=== PATIENT | female | born 1945 | race Caucasian/White ===

== ENCOUNTER 2020-11-26 07:34 | Inpatient (IN) ==
[2020-11-26] MEDS ORDERED: IOPAMIDOL 100 ML BOTTLE IV ONE (07:35)
[2020-11-26] MEDS ORDERED: 0.9 % SODIUM CHLORIDE 1,000 ML IV ONE (07:46)
[2020-11-26] MEDS ORDERED: ONDANSETRON 4 MG/2 ML VIAL IV ONE (07:46)
--- NOTE | 2020-11-26 07:46 | Emergency Department Note ---
Abdominal Pain HPI General Chief Complaint: Nausea/Vomiting/Diarrhea Stated Complaint: nausea/vomiting, abd cramps Time Seen by Provider: 11/26/20 09:08 Source: patient Mode of arrival: wheelchair Limitations: no limitations History of Present Illness HPI Narrative: 75-year-old female presents with chief complaint of abdominal pain. Patient has a history of metastatic colon cancer she has a colostomy. She had a partial resection of her liver due to metastases. She has been having some right lower quadrant cramping she describes with some nausea and loose stools. Denies any bloody stools. No fevers or chills but she did have some sweats so with the cramping. Denies any recent travel denies any recent ill contacts. She does have some chronic urinary incontinence related to radiation for treating the cancer. She denies any chest pain denies any shortness of breath. She does have some discomfort in her back. Nothing seems to make the pain better or worse. Related Data Home Medications Medication Instructions Recorded Confirmed omeprazole magnesium 20 mg 20 mg PO QDAY 03/05/20 11/26/20 tablet,delayed release ascorbic acid (vitamin C) [Vitamin 500 mg PO QDAY 10/23/20 11/26/20 C] calcium carbonate [Calcium 500] 1,000 mg PO QDAY 10/23/20 11/26/20 cholecalciferol (vitamin D3) 25 mcg PO QDAY 10/23/20 11/26/20 [Vitamin D3] gabapentin 300 mg PO HS 10/23/20 11/26/20 omega-3 fatty acids [Fish Oil] 1,000 mg PO QDAY 10/23/20 11/26/20 Previous Rx's Medication Instructions Recorded losartan 100 mg tablet 100 mg PO QDAY #90 tab 07/10/20 estradiol 1 g VAGINAL .2 x per week #42.5 g 11/15/20 vibegron 75 mg tablet 75 mg PO QDAY #30 tab 11/22/20 Allergies Allergy/AdvReac Type Severity Reaction Status Date / Time adhesive Allergy Mild Hives Verified 11/26/20 07:36 Iodinated Contrast Media Allergy Mild breathing Verified 11/26/20 07:36 [Iodinated Contrast- Oral issues, and IV Dye] hives Sulfa (Sulfonamide Allergy Mild hives Verified 11/26/20 07:36 Antibiotics) Influenza Virus Vaccines AdvReac Mild fever, Verified 11/26/20 07:36 chills, aches oxycodone AdvReac Mild Made Face Verified 11/26/20 07:36 Numb Varenicline [From Chantix] AdvReac Mild Nausea Verified 11/26/20 07:36 Review of Systems ROS ROS Narrative: Narrative: All systems ED: reviewed and negative except as stated. Constitutional: Denies fever, chills and sweats Eyes: Denies vision change Cardiovascular: Denies chest pain Respiratory: Denies shortness of breath and cough Gastrointestinal: Reports as per HPI, abdominal pain, nausea and diarrhea Musculoskeletal: Reports back pain Integumentary: Denies rash Neurological: Denies headache and dizziness Psychiatric: Denies anxiety, suicidal thoughts and homicidal thoughts Endocrine: Denies polydipsia and polyuria Hematological/Lymphatic: Denies easy bleeding and easy bruising PFSH Narrative Patient History Narrative: Narrative: Medical/Surgical/Family History All Active Problems (Updated 11/26/20 @ 15:11 by Jose Riley MD) Partial intestinal obstruction due to peritoneal adhesions (Acute) Acid reflux (Chronic ~01/2018) High blood pressure (Chronic ~2004) High cholesterol (Chronic ~2004) Joint pain (Chronic ~2017) Left leg pain (Chronic ~2017) Urinary frequency (Chronic) History of tobacco abuse (Chronic) Rectal cancer (Chronic) Liver metastasis (Chronic) History of resection of liver (Chronic) History of rectal surgery (Chronic) Urinary urgency (Chronic) Neuropathy (Chronic) Osteoarthritis (Chronic) Left shoulder pain (Chronic) Essential hypertension (Chronic) Pelvic irradiation (Acute) Vaginal atrophy (Acute) Partial obstruction of colon (Acute) Partial small bowel obstruction (Acute) Medical History Acid reflux (~01/2018) Diplopia Dizziness and giddiness Essential hypertension High blood pressure (~2004) High cholesterol (~2004) History of tobacco abuse Impacted cerumen Joint pain (~2017) Left knee pain (~2017) Left leg pain (~2017) Left shoulder pain Liver metastasis Primary rectal cancer Neuropathy Secondary to chemotherapy Osteoarthritis Rectal cancer Urinary frequency Urinary urgency Surgical History History of colonoscopy (~05/24/19) History of hysterectomy (~1985) History of laparoscopic cholecystectomy (01/18/18) History of liver biopsy (~06/15/19) History of rectal surgery Abdominal perineal resection, Liver resection partial, Pelvic/Perineal reconstruction with gracilis flap transposition/rotation from bilateral legs, Alisha for flap, Complex perineum closure, March 2020 History of resection of liver Abdominal perineal resection, Liver resection partial, Pelvic/Perineal reconstruction with gracilis flap transposition/rotation from bilateral legs, Alisha for flap, Complex preineum closure Port-A-Cath in place (~06/24/19) Family History Father Brain tumor High blood pressure Sister Lung cancer Breast cancer Son Tumor behind left kidney & along spinal cord Mother Dementia High blood pressure Social History Smoking Status: Former smoker Alcohol Intake Frequency: holiday/special occasion only Substance Use: does not use Exam Narrative Narrative: Vital Signs reviewed. Constitutional: Awake alert no acute distress well-nourished well-developed Head: Normocephalic, atraumatic Eyes: PERRLA, EOMI, no conjunctivitis Ear: Normal canals and TM's Oropharynx: moist oral mucosa, no edema, no erythema, no exudate Neck: Supple, no lymphadenopathy, no JVD Lungs: Breathing unlabored, lungs clear Cardiac: Regular rate and rhythm, normal distal pulses, GI: Soft mild right lower quadrant tenderness without rebound or guarding, there is left-sided colostomy present with brown stool present Musculoskeletal: No tenderness, no deformities, no edema, full range of motion Back: no CVA or midline tenderness Neuro: Awake alert, cranial nerves II through XII grossly intact, no focal motor or sensory deficits Psychiatric: Normal mood and affect Skin: Warm dry no rash, cap refill less than 2 seconds General Limitations: no limitations Course Reevaluation(s) Reevaluation #1: Still having some pain. Discussed CT abdomen pelvis results showing obstruction at the splenic flexure and also another stricture at the level of the small bowel. Patient is agreeable to being admitted for further evaluation and treatment and surgical consultation. Time: 09:50 Consultations Consultation #1: Case discussed with general surgeon,, Dr. Riley who agrees to admit patient. Time: 09:54 Vital Signs Vital signs: Vital Signs Temperature 96.8 F L 11/26/20 07:34 Pulse Rate 110 H 11/26/20 07:34 Respiratory Rate 16 11/26/20 07:34 Blood Pressure 138/85 11/26/20 07:34 Pulse Oximetry (%) 98 11/26/20 07:34 Temperature 97.9 F 11/26/20 12:00 Pulse Rate 87 11/26/20 12:00 Respiratory Rate 20 11/26/20 12:00 Blood Pressure 120/67 11/26/20 12:00 Pulse Oximetry (%) 99 11/26/20 12:00 MDM MDM Narrative Medical decision making narrative: Narrative: Differential Diagnosis Differential Diagnosis: Metastasis, bowel obstruction, colitis ,UTI ,pancreatitis, enteritis Lab Data Result diagrams: 11/26/20 08:10 11/26/20 08:09 Labs: Lab Results 11/26/20 11/26/20 11/26/20 Range/Units 08:09 08:10 08:10 WBC 12.5 H (4.5-11.0) K/mcL RBC 4.41 (4.00-5.20) M/mcL Hgb 14.6 (12.0-15.0) g/dL Hct 43.4 (36.0-48.0) % MCV 98.4 (80.0-100.0) fL MCH 33.1 (26.0-34.0) pg MCHC 33.6 (31.0-36.0) g/dL RDW 12.9 (11.5-14.5) % Plt Count 256 (140-440) K/mcL MPV 10.5 H (7.4-10.4) fL Seg Neutrophils % 79 H (38-78) % Lymphocytes % 13 L (15-49) % Monocytes % (Manual) 5 (1-12) % Eosinophils % (Manual) 3 (0-7) % Platelet Estimate Normal (Normal) RBC Morphology Normal (Normal) VBG Lactic Acid 1.4 (0.5-2.0) mmol/L Sodium 131 L (133-145) mmol/L Potassium 4.4 (3.3-5.1) mmol/L Chloride 95 L (96-108) mmol/L Carbon Dioxide 20 L (22-30) mmol/L Anion Gap 16.0 (8.0-16.0) BUN 21 (8-23) mg/dL Creatinine 1.1 (0.6-1.1) mg/dL POC Creatinine 1.2 (0.6-1.2) mg/dL GFR Calculation 49 Glucose 123 H (70-105) mg/dL Calcium 9.6 (8.6-10.4) mg/dL Total Bilirubin 0.8 (0.1-1.0) mg/dL AST 21 (<32) U/L ALT 8 (<40) U/L Alkaline Phosphatase 92 (39-117) U/L Total Protein 7.2 (5.9-8.4) gm/dL Albumin 4.1 (3.2-5.2) gm/dL Globulin 3.1 (2.2-3.7) gm/dL Albumin/Globulin Ratio 1.3 (1.0-2.3) Lipase 28 (7-60) U/L Urine Color Urine Appearance (Clear) Urine pH (5.0-9.0) Ur Specific Lynn (1.000-1.035) Urine Protein (Negative) mg/dL Urine Glucose (UA) (Negative) mg/dL Urine Ketones (Negative) mg/dL Urine Occult Blood (Negative) mg/dL Urine Nitrate (Negative) Urine Bilirubin (Negative) mg/dL Urine Urobilinogen mg/dL Ur Leukocyte Esterase (Negative) /ug Urine RBC (0-3) /hpf Urine WBC (0-4) /hpf Ur Squamous Epith Cells (0-4) /hpf Ur Transition Epith Cell (0-2) /hpf Urine Bacteria (0) /hpf Hyaline Casts (0-2) /lph Urine Mucus (None) /hpf Ur Culture Indicated? 11/26/20 Range/Units 09:18 WBC (4.5-11.0) K/mcL RBC (4.00-5.20) M/mcL Hgb (12.0-15.0) g/dL Hct (36.0-48.0) % MCV (80.0-100.0) fL MCH (26.0-34.0) pg MCHC (31.0-36.0) g/dL RDW (11.5-14.5) % Plt Count (140-440) K/mcL MPV (7.4-10.4) fL Seg Neutrophils % (38-78) % Lymphocytes % (15-49) % Monocytes % (Manual) (1-12) % Eosinophils % (Manual) (0-7) % Platelet Estimate (Normal) RBC Morphology (Normal) VBG Lactic Acid (0.5-2.0) mmol/L Sodium (133-145) mmol/L Potassium (3.3-5.1) mmol/L Chloride (96-108) mmol/L Carbon Dioxide (22-30) mmol/L Anion Gap (8.0-16.0) BUN (8-23) mg/dL Creatinine (0.6-1.1) mg/dL POC Creatinine (0.6-1.2) mg/dL GFR Calculation Glucose (70-105) mg/dL Calcium (8.6-10.4) mg/dL Total Bilirubin (0.1-1.0) mg/dL AST (<32) U/L ALT (<40) U/L Alkaline Phosphatase (39-117) U/L Total Protein (5.9-8.4) gm/dL Albumin (3.2-5.2) gm/dL Globulin (2.2-3.7) gm/dL Albumin/Globulin Ratio (1.0-2.3) Lipase (7-60) U/L Urine Color Yellow Urine Appearance Hazy A (Clear) Urine pH 7.0 (5.0-9.0) Ur Specific Lynn 1.036 (1.000-1.035) Urine Protein Negative (Negative) mg/dL Urine Glucose (UA) Negative (Negative) mg/dL Urine Ketones 5 A (Negative) mg/dL Urine Occult Blood Negative (Negative) mg/dL Urine Nitrate Negative (Negative) Urine Bilirubin Negative (Negative) mg/dL Urine Urobilinogen Negative mg/dL Ur Leukocyte Esterase 250 A (Negative) /ug Urine RBC < 1 (0-3) /hpf Urine WBC 7 H (0-4) /hpf Ur Squamous Epith Cells 6 H (0-4) /hpf Ur Transition Epith Cell < 1 (0-2) /hpf Urine Bacteria None (0) /hpf Hyaline Casts 9 H (0-2) /lph Urine Mucus Few A (None) /hpf Ur Culture Indicated? No ED POC Tests ED POC Tests: CHANTELLE - SARS Antigen Negative Radiology Data Radiology results reviewed: Yes I reviewed the patient's radiology results. Radiology results narrative: IMPRESSION: 1. Partial colectomy including the distal descending and rectosigmoid region with colostomy in the mid abdomen. A stricture at the splenic flexure results in partial colonic obstruction. In addition, there appears to be a second stricture versus spasm within small bowel segments in the left midabdomen on coronal image 47 and axial image 96. Standard radiographic small bowel bowel follow-through study may be required to evaluate the presence or absence of a second point of obstruction in the small bowel). There is no free air to suggest perforation and no free fluid in support third spacing. Mild edema in the presacral region is stable and chronic. 2. 14 mm cystic lesion in the uncinate process of the pancreas is been stable since the earliest CT available 1.5 years ago and is likely a a simple cyst. 3. Scattered hepatic cysts-stable. 4. Small subcapsular fluid collection inferolateral spleen-stable Interpreted and Authenticated by: Saroj Zheng 11/26/20 EKG Data EKG #1: EKG attestation: Yes I reviewed and interpreted this EKG. and Yes There are no EKG findings of acute coronary syndrome EKG results narrative: 8:50 AM shows sinus rhythm rate of 96 normal axis LVH with strain, multiple PVCs nonspecific ST changes Discharge Plan Patient/Caregiver Discharge Instructions Pt seen by FIRE EXTINGUISHER INSTALLER/PA only: No Clinical Impression: Partial obstruction of colon, Partial small bowel obstruction Patient Disposition: Xfer As Outpt/Obs ([facility]) Condition: Fair Discharge Date/Time: 11/26/20 11:00
[2020-11-26 08:19] LABS: POC Creatinine 1.2 mg/dL (0.6-1.2)
[2020-11-26 08:50] LABS: Hematocrit 43.4 % (36.0-48.0); Hemoglobin 14.6 g/dL (12.0-15.0); Mean Cell Volume 98.4 fL (80.0-100.0); Mean Corpuscular HGB Conc 33.6 g/dL (31.0-36.0); Mean Platelet Volume 10.5 fL (7.4-10.4); Platelet Count 256 K/mcL (140-440); RBC 4.41 M/mcL (4.00-5.20); Red Cell Distribution Width 12.9 % (11.5-14.5); WBC 12.5 K/mcL (4.5-11.0)
[2020-11-26 09:09] LABS: ALT/SGPT 8 U/L (<40); AST/SGOT 21 U/L (<32); Albumin 4.1 gm/dL (3.2-5.2); Albumin/Globulin Ratio 1.3 (1.0-2.3); Alkaline Phosphatase 92 U/L (39-117); Bilirubin,Total 0.8 mg/dL (0.1-1.0); Blood Urea Nitrogen 21 mg/dL (8-23); Calcium 9.6 mg/dL (8.6-10.4); Carbon Dioxide 20 mmol/L (22-30); Chloride 95 mmol/L (96-108); Globulin 3.1 gm/dL (2.2-3.7); Glomerular Filtration Rate 49; Glucose 123 mg/dL (70-105)
[2020-11-26 09:25] LABS: Eosinophils % (Manual) 3 % (0-7); Lymphocytes % 13 % (15-49); Monocytes % (Manual) 5 % (1-12); Platelet Estimate NORMAL (Normal); RBC Morphology NORMAL (Normal); Segmented Neutrophils % 79 % (38-78)
--- NOTE | 2020-11-26 09:43 | Cat Scan Report ---
CLINICAL INFORMATION: Abdominal pain COMPARISON: Abdomen and pelvic CT 05/30/2019 and 09/24/2020 TECHNIQUE: Enteric contrast was withheld. 80 cc of Isovue-370 were injected intravenously, and 60 seconds later, 0.625 mm helical slices were obtained from the mid heart through the subtrochanteric regions. Following reconstruction, 2.5 mm sagittal, coronal and axial reformatted images were processed and reviewed at bone, lung and soft tissue windows. Five minutes later, 0.625 mm helical slices were obtained from the mid heart through the kidneys and viewed at soft tissue windows.The exam was performed using radiation dose optimization techniques including, but not limited to, automated exposure control, adjustment of the mA and/or kV according to patient size and use of iterative reconstruction technique. FINDINGS: Lung bases show no abnormality-no effusion. The visualized heart is moderately enlarged heavy calcification seen in the mitral valve. Abdominal images show scattered simple cysts within the liver ranging up to 18 mm in the posterior segment right hepatic lobe. These are unchanged. The gallbladder is surgically absent. Hepatic and common bile duct normal caliber: CBD is 6 mm. A 14 mmcystic lesion in the uncinate process of the pancreas is stable for 1.5 years. The remaining pancreas, including the pancreatic duct, is normal. Both kidneys, and adrenal glands are normal. Small subcapsular fluid collection in the inferior lateral spleen is stable. The aorta contains moderate fibrofatty calcific plaque, but is normal diameter. Aortic branches contain plaque, but no definite stenosis. Pelvic images show urinary bladder is decompressed but shows no gross abnormality. Hysterectomy and oophorectomy changes noted. There is no free air, free fluid or adenopathy. Partial colectomy including the distal one half of the descending and rectosigmoid colon. There is a colostomy in the left midabdomen. Stomach, small and large bowel are dilated to the level of a stricture at the splenic flexure. There appears to be a second stricture in the small bowel in the left mid abdomen seen on coronal image 47 axial image 96.. Anatomy is difficult to define given the complexity of prior surgeries a lack of enteric contrast. Bone windows show no osseous abnormality. IMPRESSION: 1. Partial colectomy including the distal descending and rectosigmoid region with colostomy in the mid abdomen. A stricture at the splenic flexure results in partial colonic obstruction. In addition, there appears to be a second stricture versus spasm within small bowel segments in the left midabdomen on coronal image 47 and axial image 96. Standard radiographic small bowel bowel follow-through study may be required to evaluate the presence or absence of a second point of obstruction in the small bowel). There is no free air to suggest perforation and no free fluid in support third spacing. Mild edema in the presacral region is stable and chronic. 2. 14 mm cystic lesion in the uncinate process of the pancreas is been stable since the earliest CT available 1.5 years ago and is likely a a simple cyst. 3. Scattered hepatic cysts-stable. 4. Small subcapsular fluid collection inferolateral spleen-stable Interpreted and Authenticated by: Saroj Zheng 11/26/20
[2020-11-26] MEDS ORDERED: ONDANSETRON 4 MG/2 ML VIAL IV PRN (09:59)
[2020-11-26] MEDS ORDERED: 0.9 % SODIUM CHLORIDE 1,000 ML IV SCH (10:00)
[2020-11-26 10:17] LABS: Appearance,Urine HAZY (Clear); Bilirubin,Urine Negative (Negative); Color,Urine YELLOW; Culture Indicated,Urine No; Glucose,Urine (UA) Negative (Negative); Ketones,Urine 5 mg/dL (Negative); Leukocyte Esterase,Urine 250 /ug (Negative); Mucus,Urine FEW /hpf; Nitrate,Urine Negative (Negative); Protein,Urine Negative (Negative); Specific Gravity,Urine 1.036 (1.000-1.035); Urine Blood Negative (Negative); Urine Hyaline Cast 9 /lph (0-2); Urine RBC < 1 /hpf (0-3); Urine Squamous Epithelial Cell 6 /hpf (0-4); Urine Transitional Epi Cells < 1 /hpf (0-2); Urine WBC 7 /hpf (0-4); Urobilinogen,Urine Negative
[2020-11-26] MEDS: morphine 2 MG/ML VIAL IV PRN ×4 (10:18→22:30)
--- NOTE | 2020-11-26 13:48 | EKG ---
[facility] Test Date: 2020-11-26 Pat Name: Cassidy Camacho Department: ED Room: Gender: Female Grant Administrator: AW : 1945 Requested By: Gene Leong Order Number: [id number] Reading MD: Javi Perry M.D. Measurements Intervals [place] Rate: 96 P: 71 RI: 121 QRS: 28 QRSD: 88 T: 150 QT: 356 QTc: 450 Interpretive Statements SINUS TACHYCARDIA MULTIFORM VENTRICULAR PREMATURE COMPLEXES RIGHT ATRIAL ABNORMALITY LVH WITH SECONDARY REPOLARIZATION ABNORMALITY ST DEPRESSION, CONSIDER ISCHEMIA, ANT-LAT LDS Since previous ECG of 10-23-2020, PVCs, DIAZ ABNORMAL ECG Electronically Signed On 11-26-2020 13:48:46 PDT by Javi Perry M.D. /[facility] [place]/[id number]
[2020-11-26] MEDS ORDERED: PROMETHAZINE 25 MG/ML VIAL IV PRN (15:12)
[2020-11-26] MEDS ORDERED: LORazepam 1 MG TABLET PO PRN (15:12)
--- NOTE | 2020-11-26 15:12 | General Surg History&Physical ---
HPI History of Present Illness Patient information: Note initiated : 11/26/20 at 2:58 pm Service Date, if different from initiated Date: [] Patient: Cassidy Camacho a 75 y/o F admitted on 11/26/20 for N/V, Abd Cramps. Chief Complaint: [] Chief complaint: Abdominal pain nausea History of present illness: Ms. Camacho is a 75 year old F admitted with history of crampy abdominal pain in the mid abdomen radiating to the right upper quadrant. Patient states that symptoms started on Thursday has become progressively worse since then. She developed nausea Thursday but did not have vomiting. She states that she came to the emergency room because of the increasing pain. She has a colostomy and has had stool evacuation through her stoma throughout this time. The patient is status post treatment for stage IV anal cancer. She was noted to have anal rectal cancer in early 1999. She was treated with chemoradiation karin otic assisted abdominal perineal resection with pelvic perineoplasty as well as partial hepatectomy. She had successful resection of the tumor and has been doing well since that time. She states that she normally has regular bowel movements her stools have been normal she is having some crampy abdominal pain at this time CT shows possible stricture the splenic flexure: Mid small bowel Review of Systems All systems: reviewed and no additional remarkable complaints except as stated Constitutional Constitutional: Present fatigue, lethargy and malaise Cardiovascular Cardiovascular: Present lightheadedness and radiating pain Gastrointestinal Gastrointestinal: Present abdominal pain, change in bowel habits, change in stool character, cramping and nausea Genitourinary Genitourinary: Present change in urinary stream, urinary frequency and urinary urgency Musculoskeletal Musculoskeletal: Present myalgias and numbness Neurological Neurological: Present paresthesias and tingling PFSH PFSH All Active Problems (Updated 11/26/20 @ 15:11 by Jose Riley MD) Partial intestinal obstruction due to peritoneal adhesions (Acute) Acid reflux (Chronic ~01/2018) High blood pressure (Chronic ~2004) High cholesterol (Chronic ~2004) Joint pain (Chronic ~2017) Left leg pain (Chronic ~2017) Urinary frequency (Chronic) History of tobacco abuse (Chronic) Rectal cancer (Chronic) Liver metastasis (Chronic) History of resection of liver (Chronic) History of rectal surgery (Chronic) Urinary urgency (Chronic) Neuropathy (Chronic) Osteoarthritis (Chronic) Left shoulder pain (Chronic) Essential hypertension (Chronic) Pelvic irradiation (Acute) Vaginal atrophy (Acute) Partial obstruction of colon (Acute) Partial small bowel obstruction (Acute) Medical History Acid reflux (~01/2018) Diplopia Dizziness and giddiness Essential hypertension High blood pressure (~2004) High cholesterol (~2004) History of tobacco abuse Impacted cerumen Joint pain (~2017) Left knee pain (~2017) Left leg pain (~2017) Left shoulder pain Liver metastasis Primary rectal cancer Neuropathy Secondary to chemotherapy Osteoarthritis Rectal cancer Urinary frequency Urinary urgency Surgical History History of colonoscopy (~05/24/19) History of hysterectomy (~1985) History of laparoscopic cholecystectomy (01/18/18) History of liver biopsy (~06/15/19) History of rectal surgery Abdominal perineal resection, Liver resection partial, Pelvic/Perineal reconstruction with gracilis flap transposition/rotation from bilateral legs, Alisha for flap, Complex perineum closure, March 2020 History of resection of liver Abdominal perineal resection, Liver resection partial, Pelvic/Perineal reconstruction with gracilis flap transposition/rotation from bilateral legs, Alisha for flap, Complex preineum closure Port-A-Cath in place (~06/24/19) Family History Father Brain tumor High blood pressure Sister Lung cancer Breast cancer Son Tumor behind left kidney & along spinal cord Mother Dementia High blood pressure Social History household members: spouse housing: house lives independently: Yes marital status: education level: college service: No occupational status: retired occupation: last job was at [employer], no work since 2017 eating out: 1-3 times/week physical activity: walking smoking status: Former smoker quit date: 12/10/11 alcohol intake frequency: holiday/special occasion only substance use type: does not use erinn/rastafari: Hoahaoism seatbelt use: always MEDS/ALLERGIES Home Medications and Allergies Home Medications Medication Instructions Recorded Confirmed Type omeprazole magnesium 20 mg 20 mg PO QDAY 03/05/20 11/26/20 History tablet,delayed release losartan 100 mg tablet 100 mg PO QDAY #90 tab 07/10/20 11/26/20 Rx ascorbic acid (vitamin C) [Vitamin 500 mg PO QDAY 10/23/20 11/26/20 History C] calcium carbonate [Calcium 500] 1,000 mg PO QDAY 10/23/20 11/26/20 History cholecalciferol (vitamin D3) 25 mcg PO QDAY 10/23/20 11/26/20 History [Vitamin D3] gabapentin 300 mg PO HS 10/23/20 11/26/20 History omega-3 fatty acids [Fish Oil] 1,000 mg PO QDAY 10/23/20 11/26/20 History estradiol 1 g VAGINAL .2 x per week #42.5 g 11/15/20 11/26/20 Rx vibegron 75 mg tablet 75 mg PO QDAY #30 tab 11/22/20 11/26/20 Rx Allergies Allergy/AdvReac Type Severity Reaction Status Date / Time adhesive Allergy Mild Hives Verified 11/26/20 07:36 Iodinated Contrast Media Allergy Mild breathing Verified 11/26/20 07:36 [Iodinated Contrast- Oral issues, and IV Dye] hives Sulfa (Sulfonamide Allergy Mild hives Verified 11/26/20 07:36 Antibiotics) Influenza Virus Vaccines AdvReac Mild fever, Verified 11/26/20 07:36 chills, aches oxycodone AdvReac Mild Made Face Verified 11/26/20 07:36 Numb Varenicline [From Chantix] AdvReac Mild Nausea Verified 11/26/20 07:36 Physical Examination Vital Signs Vital signs: Temp Pulse Resp BP Pulse Ox 97.9 F 87 20 120/67 99 11/26/20 12:00 11/26/20 12:00 11/26/20 12:00 11/26/20 12:00 11/26/20 12:00 General physical appearance General physical exam: well developed, well nourished, no distress, moderate pain and chronically ill Eyes Eye exam: PERRL and normal ocular movement ENT ENT exam: normal mucosa and poor chcf Head Head exam IM: Present atraumatic, normal inspection and normocephalic Neck Neck exam: no masses, no bruits, trachea midline, no lymphadenopathy and no venous distension Cardiovascular Cardiovascular exam IM: Present normal rate and rhythm, RRR, +S1 and +S2; Absent JVD Respiratory Respiratory exam: normal expansion, normal respiratory effort and clear to auscultation Abdomen Abdomen: Present tender (Mild tenderness in mid abdomen), bowel sounds (Active bowel sounds) and distended Rectum Rectum: Present other (Status post perineal resection with healed perineum) Integumentary Integumentary: Present no rash, no growths and no abnormal pigmentation Neurologic Neurologic: Present normal coordination and normal sensation Musculoskeletal Musculoskeletal: Present normal gait and normal posture Psychiatric Psychiatric: Present oriented to time, oriented to person, oriented to place, speech is normal and memory intact Results Labs Result diagrams: 11/26/20 08:10 11/26/20 08:09 Labs: Abnormal lab results 11/26/20 11/26/20 11/26/20 Range/Units 08:09 08:10 09:18 WBC 12.5 H (4.5-11.0) K/mcL MPV 10.5 H (7.4-10.4) fL Seg Neutrophils % 79 H (38-78) % Lymphocytes % 13 L (15-49) % Sodium 131 L (133-145) mmol/L Chloride 95 L (96-108) mmol/L Carbon Dioxide 20 L (22-30) mmol/L Glucose 123 H (70-105) mg/dL Urine Appearance Hazy A (Clear) Urine Ketones 5 A (Negative) mg/dL Ur Leukocyte Esterase 250 A (Negative) /ug Urine WBC 7 H (0-4) /hpf Ur Squamous Epith Cells 6 H (0-4) /hpf Hyaline Casts 9 H (0-2) /lph Urine Mucus Few A (None) /hpf Diabetes panel 11/26/20 Range/Units 08:09 Sodium 131 L (133-145) mmol/L Potassium 4.4 (3.3-5.1) mmol/L Chloride 95 L (96-108) mmol/L Carbon Dioxide 20 L (22-30) mmol/L BUN 21 (8-23) mg/dL Creatinine 1.1 (0.6-1.1) mg/dL Glucose 123 H (70-105) mg/dL Calcium 9.6 (8.6-10.4) mg/dL AST 21 (<32) U/L ALT 8 (<40) U/L Alkaline Phosphatase 92 (39-117) U/L Total Protein 7.2 (5.9-8.4) gm/dL Albumin 4.1 (3.2-5.2) gm/dL Calcium panel 11/26/20 Range/Units 08:09 Calcium 9.6 (8.6-10.4) mg/dL Albumin 4.1 (3.2-5.2) gm/dL Pituitary panel 11/26/20 Range/Units 08:09 Sodium 131 L (133-145) mmol/L Potassium 4.4 (3.3-5.1) mmol/L Chloride 95 L (96-108) mmol/L Carbon Dioxide 20 L (22-30) mmol/L BUN 21 (8-23) mg/dL Creatinine 1.1 (0.6-1.1) mg/dL Glucose 123 H (70-105) mg/dL Calcium 9.6 (8.6-10.4) mg/dL Adrenal panel 11/26/20 Range/Units 08:09 Sodium 131 L (133-145) mmol/L Potassium 4.4 (3.3-5.1) mmol/L Chloride 95 L (96-108) mmol/L Carbon Dioxide 20 L (22-30) mmol/L BUN 21 (8-23) mg/dL Creatinine 1.1 (0.6-1.1) mg/dL Glucose 123 H (70-105) mg/dL Calcium 9.6 (8.6-10.4) mg/dL Total Bilirubin 0.8 (0.1-1.0) mg/dL AST 21 (<32) U/L ALT 8 (<40) U/L Alkaline Phosphatase 92 (39-117) U/L Total Protein 7.2 (5.9-8.4) gm/dL Albumin 4.1 (3.2-5.2) gm/dL All other labs normal. A/P Assessment and plan (1) Partial intestinal obstruction due to peritoneal adhesions: Status: Acute (2) Rectal cancer: Status: Chronic (3) Liver metastasis: Status: Chronic Comment: Primary rectal cancer (4) History of resection of liver: Status: Chronic Comment: Abdominal perineal resection, Liver resection partial, Pelvic/Perineal reconstruction with gracilis flap transposition/rotation from bilateral legs, Alisha for flap, Complex preineum closure (5) Essential hypertension: Status: Chronic Narrative A/P Narrative: Patient will be monitored and allowed to have sips of liquids Reglan 10 mg IV every 6 hours Small bowel follow-through in the morning Operative intervention if needed Time Spent With Patient Time: Total time spent is greater than 50% in coordination of care (as documented) at patient's floor/unit and/or counseling patient:
[2020-11-26 16:53] LABS: Carcinoembryonic Antigen 23.1 ng/mL (<3.4)
[2020-11-26] MEDS: METOCLOPRAMIDE 10 MG/2 ML VIAL IV SCH (17:08)
[2020-11-26] MEDS: 0.9 % SODIUM CHLORIDE 1,000 ML IV SCH ×3 (17:08→23:59)
[2020-11-26] MEDS: PANTOPRAZOLE 40 MG VIAL IV SCH (17:08)
[2020-11-26] MEDS: ONDANSETRON 4 MG/2 ML VIAL IV PRN ×2 (18:41→22:41)
[2020-11-27] MEDS: METOCLOPRAMIDE 10 MG/2 ML VIAL IV SCH ×5 (00:03→23:56)
[2020-11-27] MEDS: morphine 2 MG/ML VIAL IV PRN ×2 (03:13→07:31)
[2020-11-27] MEDS: 0.9 % SODIUM CHLORIDE 1,000 ML IV SCH ×5 (03:52→22:18)
[2020-11-27 06:53] LABS: Basophils # (Auto) 0.03 K/mcL (0.00-0.20); Basophils % (Auto) 0.4 % (0.0-2.0); Eosinophils # (Auto) 0.02 K/mcL (0.00-0.70); Eosinophils % (Auto) 0.3 % (0.0-7.0); Hematocrit 38.2 % (36.0-48.0); Hemoglobin 12.1 g/dL (12.0-15.0); Lymphocytes # (Auto) 0.58 K/mcL (1.50-4.80); Lymphocytes % (Auto) 7.8 % (15.0-49.0); Mean Cell Volume 102.7 fL (80.0-100.0); Mean Corpuscular HGB Conc 31.7 g/dL (31.0-36.0); Mean Platelet Volume 10.7 fL (7.4-10.4); Monocytes # (Auto) 0.68 K/mcL (0.10-0.90); Monocytes % (Auto) 9.1 % (1.0-12.0); Neutrophils % (Auto) 82.4 % (38.0-78.0); Platelet Count 199 K/mcL (140-440); RBC 3.72 M/mcL (4.00-5.20); Red Cell Distribution Width 13.1 % (11.5-14.5); WBC 7.5 K/mcL (4.5-11.0)
[2020-11-27 07:22] LABS: ALT/SGPT 6 U/L (<40); AST/SGOT 21 U/L (<32); Albumin 3.4 gm/dL (3.2-5.2); Albumin/Globulin Ratio 1.4 (1.0-2.3); Alkaline Phosphatase 71 U/L (39-117); Bilirubin,Direct < 0.2 mg/dL (0-0.3); Bilirubin,Total 0.6 mg/dL (0.1-1.0); Blood Urea Nitrogen 21 mg/dL (8-23); Calcium 8.6 mg/dL (8.6-10.4); Carbon Dioxide 19 mmol/L (22-30); Chloride 101 mmol/L (96-108); Globulin 2.4 gm/dL (2.2-3.7); Glomerular Filtration Rate 63; Glucose 75 mg/dL (70-105); Lactate Dehydrogenase 167 U/L (135-225); Phosphorous 4.3 mg/dL (2.5-4.5); Triglycerides 70 mg/dL (<150); Uric Acid 4.5 mg/dL (2.5-8.0)
[2020-11-27] MEDS: PANTOPRAZOLE 40 MG VIAL IV SCH ×2 (07:31→17:14)
--- NOTE | 2020-11-27 13:35 | General Surgery Progress Note ---
SUBJECTIVE Subjective Patient information: Note initiated : 11/27/20 at 1:27 pm Service Date, if different from initiated Date: [] Patient: Cassidy Camacho 75 y/o F admitted on 11/26/20 for N/V, Abd Cramps. Chief Complaint: [] Principal diagnosis: Partial intestinal obstruction Interval history: Patient states that she had crampy abdominal pain but since institution of the small bowel follow-through she has had stoma outputs of 250 cc and 150 cc with significant decrease in crampy pain. She denies nausea. Abdominal x-ray shows contrast through to the colon at 2-1/2 hours however there is still dilation of the colon and small bowel. Additional x-rays will be obtained. Labs are normal and white blood count is normal. CEA is significantly increased at 23.1. Constitutional Vitals: Vital Signs Temp Pulse Resp BP Pulse Ox 98.3 F 91 H 20 97/59 90 11/27/20 08:00 11/27/20 08:00 11/27/20 08:00 11/27/20 08:00 11/27/20 08:00 Period Temp Pulse Resp BP Sys/Fulton Pulse Ox Last 24 Hr 97.3 F-98.3 F 83-106 14-20 97-113/56-64 89-98 Intake and Output 11/26/20 11/27/20 11/27/20 21:59 05:59 13:59 Intake Total 1298 1100 1131 Output Total 551 350 550 Balance 747 750 581 Weight 130 lb Intake & Output: Intake & Output 11/26/20 11/27/20 11/27/20 21:59 05:59 13:59 Intake Total 1298 1100 1131 Output Total 551 350 550 Balance 747 750 581 Weight 130 lb Intake: IV 1298 1000 931 Sodium Chloride 0.9% 1,000 ml @ 1298 1000 931 125 mls/hr IV .Q8H [facility] Rx#: [id number] Oral 100 200 Output: Void Amount 500 350 450 # of times incontinent of urine 1 Stool 50 100 Other: Urine Appearance Clear Clear Clear Urine Color Bright Yellow Bright Yellow Bright Yellow Urine Odor Normal Strong Stool Color Brown Stool Consistency Liquid Head Head exam: Present atraumatic, normal inspection and normocephalic Eye Eye exam: Present EOMI Pupils: Present normal accommodation and PERRL ENT ENT exam: Present mucous membranes moist, normal exam and normal oropharynx Neck Neck exam: Present full ROM; Absent lymphadenopathy, tenderness and thyromegaly Respiratory Respiratory exam: Present normal respiratory exam and CTAB; Absent rales, rhonchi and wheezes Cardiovascular Cardiovascular exam: Present irregular rhythm (Irregular rhythm with multiple ectopic ventricular beats), +S1, +S2 and systolic murmur (Grade 2 systolic ejection murmur); Absent JVD GI/Abdominal GI/Abdominal exam: Present normal bowel sounds, distended (Mild distention p ersists but is less than on yesterday) and hyperactive bowel sounds; Absent mass, rebound and tenderness Extremities Exam Extremities exam: Present full ROM and pedal edema; Absent calf tenderness and tenderness Neurological Exam Neurological exam: Present abnormal gait, alert and oriented X3 Psychiatric Psychiatric exam: Present anxious Skin Skin exam: Present intact; Absent cyanosis A/P Assessment and plan (1) Partial intestinal obstruction due to peritoneal adhesions: Status: Acute (2) Rectal cancer: Status: Chronic (3) History of resection of liver: Status: Chronic Comment: Abdominal perineal resection, Liver resection partial, Pelvic/Perineal reconstruction with gracilis flap transposition/rotation from bilateral legs, Alisha for flap, Complex preineum closure (4) History of rectal surgery: Status: Chronic Comment: Abdominal perineal resection, Liver resection partial, Pelvic/Perineal recon struction with gracilis flap transposition/rotation from bilateral legs, Alisha for flap, Complex perineum closure, March 2020 (5) Essential hypertension: Status: Chronic (6) Partial small bowel obstruction: Status: Acute (7) Partial obstruction of colon: Status: Acute Narrative A/P Narrative: Patient will be continued on sips of liquids and will have completion of her small bowel follow-through study 2 view abdominal x-ray will be repeated in the morning Patient has not been notified of her elevated CEA. I will do this after her small bowel follow-through study is complete Time Spent With Patient Time: Total time spent is greater than 50% in coordination of care (as documented) at patient's floor/unit and/or counseling patient:
[2020-11-27] MEDS ORDERED: DIATRIZOATE MEGLU/DIATRIZO SOD 30 ML BOTTLE PO ONE (14:59)
--- NOTE | 2020-11-27 15:12 | XRay Report ---
HISTORY: Small bowel obstruction, nausea, vomiting, prior left colectomy for colon cancer FINDINGS: [employer] film of the abdomen shows several dilated loops of small intestine measuring up to 4 cm in width. The wall does not appear to be thickened or inflamed. There is air in nondilated large intestine. Incidentally noted is severe arthritis in the left hip with partial collapse of the femoral head. This may be due to avascular necrosis. Patient drank a liter of fluid mixed 3-1 water with Gastrografin.. Serial images were obtained following the contrast through the small bowel into the large intestine. The cecum began to opacify at two hours and 45 minutes. By four hours and 45 minutes much of the contrast passed through stomach and small intestine, through the colon into the colostomy bag. There is retained contrast in the fundus of the stomach even at four hours and 45 minutes. On the final image there is still dilatation of the small intestine. Fluoroscopy was performed. A transition point cannot be identified. 58 seconds of fluoroscopy time was used. IMPRESSION: Resolved small bowel obstruction with residual dilatation of the small intestine Interpreted and Authenticated by: Khurram Conner 11/27/20
[2020-11-28] MEDS: 0.9 % SODIUM CHLORIDE 1,000 ML IV SCH ×3 (04:32→15:16)
[2020-11-28] MEDS: METOCLOPRAMIDE 10 MG/2 ML VIAL IV SCH ×4 (05:13→23:27)
[2020-11-28 06:31] LABS: Basophils # (Auto) 0.04 K/mcL (0.00-0.20); Basophils % (Auto) 0.8 % (0.0-2.0); Eosinophils # (Auto) 0.14 K/mcL (0.00-0.70); Eosinophils % (Auto) 2.8 % (0.0-7.0); Hemoglobin 10.4 g/dL (12.0-15.0); Lymphocytes # (Auto) 0.71 K/mcL (1.50-4.80); Lymphocytes % (Auto) 14.1 % (15.0-49.0); Mean Cell Volume 102.5 fL (80.0-100.0); Mean Corpuscular HGB Conc 31.5 g/dL (31.0-36.0); Mean Platelet Volume 10.5 fL (7.4-10.4); Monocytes # (Auto) 0.54 K/mcL (0.10-0.90); Monocytes % (Auto) 10.7 % (1.0-12.0); Neutrophils % (Auto) 71.6 % (38.0-78.0); Platelet Count 159 K/mcL (140-440); RBC 3.22 M/mcL (4.00-5.20); Red Cell Distribution Width 12.9 % (11.5-14.5)
[2020-11-28 06:53] LABS: ALT/SGPT 5 U/L (<40); AST/SGOT 13 U/L (<32); Albumin/Globulin Ratio 1.3 (1.0-2.3); Alkaline Phosphatase 64 U/L (39-117); Bilirubin,Direct < 0.2 mg/dL (0-0.3); Bilirubin,Total 0.6 mg/dL (0.1-1.0); Blood Urea Nitrogen 19 mg/dL (8-23); Calcium 8.3 mg/dL (8.6-10.4); Carbon Dioxide 18 mmol/L (22-30); Chloride 104 mmol/L (96-108); Globulin 2.4 gm/dL (2.2-3.7); Glomerular Filtration Rate 72; Glucose 64 mg/dL (70-105); Lactate Dehydrogenase 133 U/L (135-225); Phosphorous 2.3 mg/dL (2.5-4.5); Triglycerides 69 mg/dL (<150); Uric Acid 4.6 mg/dL (2.5-8.0)
--- NOTE | 2020-11-28 09:00 | XRay Report ---
HISTORY: Follow-up partial small bowel obstruction with nausea, vomiting and abdominal cramping FINDINGS: The stomach is now decompressed and most of the contrast seen within the stomach on yesterday's small bowel follow-through has cleared. There are multiple mildly dilated loops of small intestine which contain air-fluid levels and some contrast. The small bowel loops measure up to 3.8 cm in diameter. Small intestine is less distended today than it was yesterday. Most of the residual Gastrografin contrast given yesterday is located within the colon from the level of the cecum to the ostomy which is located in left mid abdominal wall. IMPRESSION: Persistent air-fluid levels in both large and small intestine with mild dilatation of the small intestine. This could be due to motility disorder or an incomplete small bowel obstruction. Interpreted and Authenticated by: Khurram Conner 11/28/20
[2020-11-28] MEDS: PANTOPRAZOLE 40 MG VIAL IV SCH ×2 (10:38→17:55)
--- NOTE | 2020-11-28 14:17 | General Surgery Progress Note ---
SUBJECTIVE Subjective Patient information: Note initiated : 11/28/20 at 2:14 pm Service Date, if different from initiated Date: [] Patient: Cassidy Camacho 75 y/o F admitted on 11/26/20 for N/V, Abd Cramps. Chief Complaint: [] Principal diagnosis: Partial intestinal obstruction Interval history: Patient is clinically improved. She had output through her stoma throughout the night and has had good gas through her stoma. Morning x- rays shows that contrast from her stomach and small bowel is mostly in the colon and this extends to her stoma. She does not have any discomfort and she denies having any nausea. She has tolerated clear liquids without difficulty and she just had a full liquid diet and states that she feels fine. Constitutional Vitals: Vital Signs Temp Pulse Resp BP Pulse Ox 97.8 F 78 20 118/65 94 11/28/20 12:00 11/28/20 12:00 11/28/20 12:00 11/28/20 12:00 11/28/20 12:00 Period Temp Pulse Resp BP Sys/Fulton Pulse Ox Last 24 Hr 97.3 F-98.5 F 78-90 18-20 94-118/53-65 94-97 Intake and Output 11/28/20 11/28/20 11/28/20 05:59 13:59 21:59 Intake Total 1440 640 Output Total 570 900 Balance 870 -260 Intake & Output: Intake & Output 11/28/20 11/28/20 11/28/20 05:59 13:59 21:59 Intake Total 1440 640 Output Total 570 900 Balance 870 -260 Intake: IV 1000 Sodium Chloride 0.9% 1,000 ml @ 1000 125 mls/hr IV .Q8H [facility] Rx#: [id number] Oral 440 640 Output: Void Amount 320 750 Stool 250 150 Other: Meal Breakfast Percent of Meal Consumed 100% Feeding Ability Independent Urine Appearance Clear Clear Urine Color Bright Yellow Pale Urine Odor Normal Stool Size Small Stool Color Brown Stool Consistency Liquid Eye Eye exam: Present EOMI Pupils: Present normal accommodation and PERRL ENT ENT exam: Present mucous membranes moist, normal exam and normal oropharynx Neck Neck exam: Present full ROM; Absent lymphadenopathy, tenderness and thyromegaly Respiratory Respiratory exam: Present normal respiratory exam and CTAB; Absent rales, rhonchi and wheezes Cardiovascular Cardiovascular exam: Present irregular rhythm (Irregular rhythm with multiple ectopic ventricular beats), +S1, +S2 and systolic murmur (Grade 2 systolic ejection murmur); Absent JVD GI/Abdominal GI/Abdominal exam: Present normal bowel sounds, distended (Mild distention persists but is less than on yesterday) and hyperactive bowel sounds; Absent mass, rebound and tenderness Extremities Exam Extremities exam: Present full ROM and pedal edema; Absent calf tenderness and tenderness Neurological Exam Neurological exam: Present abnormal gait, alert and oriented X3 Psychiatric Psychiatric exam: Present anxious A/P Assessment and plan (1) Partial intestinal obstruction due to peritoneal adhesions: Status: Acute (2) Rectal cancer: Status: Chronic (3) History of resection of liver: Status: Chronic Comment: Abdominal perineal resection, Liver resection partial, Pelvic/Perineal reconstruction with gracilis flap transposition/rotation from bilateral legs, Alisha for flap, Complex preineum closure (4) History of rectal surgery: Status: Chronic Comment: Abdominal perineal resection, Liver resection partial, Pelvic/Perineal reconstruction with gracilis flap transposition/rotation from bilateral legs, Alisha for flap, Complex perineum closure, March 2020 (5) Essential hypertension: Status: Chronic (6) Partial small bowel obstruction: Status: Acute (7) Partial obstruction of colon: Status: Acute Narrative A/P Narrative: Advance to soft diet in the morning Follow-up abdominal x-rays in the morning Time Spent With Patient Time: Total time spent is greater than 50% in coordination of care (as documented) at patient's floor/unit and/or counseling patient:
[2020-11-28] MEDS: ACETAMINOPHEN 500 MG TABLET PO PRN ×3 (15:18→23:50)
[2020-11-28] MEDS ORDERED: GABAPENTIN 300 MG CAPSULE PO SCH (21:00)
[2020-11-29] MEDS: METOCLOPRAMIDE 10 MG/2 ML VIAL IV SCH ×2 (05:10→12:01)
[2020-11-29] MEDS: PANTOPRAZOLE 40 MG VIAL IV SCH ×2 (07:30→16:30)
--- NOTE | 2020-11-29 08:45 | XRay Report ---
HISTORY: Follow-up small bowel obstruction FINDINGS: There are few loops of dilated small intestine in the left upper quadrant which measure up to 4 cm in diameter. There is also gas in nondilated colon. Air-fluid levels are present in both large and small intestine. The Gastrografin contrast seen within the bowel on yesterday's exam has now nearly completely cleared. Caliber of small intestine has not changed. There is less air in the large intestine today. No free intra-abdominal air is present. IMPRESSION: Nonspecific bowel pattern with air-fluid levels in both large and small intestine and stable dilatation of the small intestine. The patient may have an incomplete small bowel obstruction. However, this would not explain the presence of air-fluid levels in the large intestine. Interpreted and Authenticated by: Khurram Conner 11/29/20
[2020-11-29] MEDS ORDERED: LOSARTAN 50 MG TABLET PO SCH (09:00)
[2020-11-29] MEDS ORDERED: Vibegron [Gemtesa] 75 mg tablet PO SCH (09:00)
[2020-11-29] MEDS: 0.9 % SODIUM CHLORIDE 1,000 ML IV SCH (11:42)
--- NOTE | 2020-11-29 17:05 | Discharge Summary ---
Discharge Provider Provider Patient information: Note initiated : 11/29/20 at 4:57 pm Service Date, if different from initiated Date: [] Patient: Cassidy Camacho 75 y/o F admitted on 11/26/20 for N/V, Abd Cramps. Chief Complaint: [] Date of admission: 11/26/20 11:00 Discharge date: 11/29/20 Primary care physician: Rc Constantino PA-C Admitting clinician: Jose Riley Consults: 11/26/20 Consult to Physician [CONS] Stat Comment: Consulting Provider: Jose Riley Reason For Exam: Physician to Consult Attending physician on discharge: Jose Riley Discharging clinician: Jose Riley COURSE Hospital Course Hospital course: 75-year-old female admitted with a partial bowel obstruction. She has a history of stage IV anal cancer that was treated with chemoradiation and abdominal perineal resection with pelvic perineoplasty. She also had right partial hepatectomy. She started having crampy abdominal pain and was seen in the emergency room where there was a suggestion of a stricture at the hepatic flexure of her colon. She has an end colostomy. The patient was monitored overnight and continued to have soft bowel movements. She had small bowel follow-through with contrast emptying the small bowel in 2-1/2 hours and the colon in 4 hours. Her diet has been advanced to a soft diet and she is tolerating without difficulty. She has emptying of her small bowel with a small amount of residual contrast in her colon. She is eliminating over 400 cc of fecal matter per shift. She is clinically stable without any complaints and is discharged home. 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 Reason for admission: Small bowel obstruction Procedures: None Pertinent studies/significant findings: CT of abdomen and pelvis with contrast Small bowel follow-through Complications: None Time Spent with Patient Time attestation: Total time spent providing and/or coordinating discharge services: Physical Examination Vital Signs Vital signs: Temp Pulse Resp BP Pulse Ox 97.8 F 70 18 145/76 99 11/29/20 16:00 11/29/20 16:00 11/29/20 16:00 11/29/20 16:00 11/29/20 16:00 General physical appearance General physical exam: well developed, well nourished, no distress, moderate pain and chronically ill Eyes Eye exam: PERRL and normal ocular movement ENT ENT exam: normal mucosa and poor mcfp Neck Neck exam: no masses, no bruits, trachea midline, no lymphadenopathy and no venous distension Cardiovascular Cardiovascular exam IM: Present normal rate and rhythm, RRR, +S1 and +S2; Absent JVD Respiratory Respiratory exam: normal expansion, normal respiratory effort and clear to auscultation Integumentary Integumentary: Present no rash, no growths and no abnormal pigmentation Neurologic Neurologic: Present normal coordination and normal sensation Musculoskeletal Musculoskeletal: Present normal gait and normal posture Psychiatric Psychiatric: Present oriented to time, oriented to person, oriented to place, speech is normal and memory intact Discharge Plan Patient/Caregiver Discharge Instructions Activity: increase activity as tolerated Diet: Regular Diet Prescriptions: No Action Gemtesa 75 mg tablet 75 mg PO QDAY Qty: 30 RF: 11 omeprazole magnesium [Prilosec OTC] 20 mg tablet,delayed release (DR/EC) 20 mg PO QDAY RF: 0 losartan 100 mg tablet 100 mg PO QDAY Qty: 90 RF: 3 calcium carbonate [Calcium 500] 500 mg calcium (1,250 mg) Tablet 1,000 mg PO QDAY RF: 0 Fish Oil Capsule 1,000 mg PO QDAY RF: 0 ascorbic acid (vitamin C) [Vitamin C] 500 mg Tablet 500 mg PO QDAY RF: 0 gabapentin 300 mg capsule 300 mg PO HS RF: 0 cholecalciferol (vitamin D3) [Vitamin D3] 25 mcg (1,000 unit) Tablet 25 mcg PO QDAY RF: 0 estradiol [Estrace] 0.01 % (0.1 mg/gram) cream 1 g vaginal .2 x per week Qty: 42.5 RF: 6 Follow Up Plan Follow up with: Rc Constantino PA-C [Primary Care Provider] - Jose Riley MD [Physician] - (Contact the office for follow-up in 1 week 2 view abdominal x-ray to be performed prior to coming to the office) Patient Disposition: Home, Self-Care Prognosis: Good Rehab Potential: Good I certify that the patient requires SNF services: No Overall status at discharge: patient is progressing back to baseline Discharge Orders: Discharge Order (Routine); Ordered 11/29/20 Ordered By: Jose Riley Pending Pending Pending: Resuscitation Status Full Code Diet GI Soft/Transitional Start Ariana Nov 30 799 Acetaminophen (Acetaminophen 500 Mg Tablet) 500 mg PO Q4HP PRN; Protocol PRN Reason: Per Pain Protocol Last Admin: 11/28/20 23:50 Dose: 500 mg Documented by: Admin: 11/28/20 19:37 Dose: 500 mg Documented by: Admin: 11/28/20 15:18 Dose: 500 mg Documented by: LUCIANA Gabapentin (Gabapentin 300 Mg Capsule) 300 mg PO [facility] Last Admin: 11/28/20 21:07 Dose: 300 mg Documented by: SAMM Sodium Chloride (Sodium Chloride 0.9%) 1,000 mls @ 50 mls/hr IV .Q20H [facility] Last Admin: 11/29/20 11:42 Dose: 50 mls/hr Documented by: Infusion: 11/29/20 11:16 Dose: 50 mls/hr Documented by: Admin: 11/28/20 15:16 Dose: 50 mls/hr Documented by: LUCIANA Losartan Potassium (Losartan 50 Mg Tablet) 100 mg PO DAILY [facility] Last Admin: 11/29/20 08:58 Dose: 100 mg Documented by: HARVEY Metoclopramide HCl (Metoclopramide 10 Mg/2 Ml Vial) 10 mg IV Q6 [facility] Last Admin: 11/29/20 12:01 Dose: 10 mg Documented by: Admin: 11/29/20 05:10 Dose: 10 mg Documented by: Admin: 11/28/20 23:27 Dose: 10 mg Documented by: Admin: 11/28/20 17:55 Dose: 10 mg Documented by: Admin: 11/28/20 11:50 Dose: 10 mg Documented by: Admin: 11/28/20 05:13 Dose: 10 mg Documented by: Admin: 11/27/20 23:56 Dose: 10 mg Documented by: Admin: 11/27/20 17:14 Dose: 10 mg Documented by: Admin: 11/27/20 11:28 Dose: 10 mg Documented by: Admin: 11/27/20 05:45 Dose: 10 mg Documented by: Admin: 11/27/20 00:03 Dose: 10 mg Documented by: Admin: 11/26/20 17:08 Dose: 10 mg Documented by: SIA Morphine Sulfate (Morphine 2 Mg/Ml Vial) 2 mg IV Q4HP PRN; Protocol PRN Reason: Per Pain Protocol Last Admin: 11/27/20 07:31 Dose: 2 mg Documented by: Admin: 11/27/20 03:13 Dose: 2 mg Documented by: Admin: 11/26/20 22:30 Dose: 2 mg Documented by: Admin: 11/26/20 18:32 Dose: 2 mg Documented by: Admin: 11/26/20 14:20 Dose: 2 mg Documented by: Admin: 11/26/20 10:18 Dose: 2 mg Documented by: LEIGH Ondansetron HCl (Ondansetron 4 Mg/2 Ml Vial) 4 mg IV Q4HP PRN; Protocol PRN Reason: Nausea/Vomiting Last Admin: 11/26/20 22:41 Dose: 4 mg Documented by: Admin: 11/26/20 18:41 Dose: 4 mg Documented by: CHERELLE Pantoprazole Sodium (Pantoprazole 40 Mg Vial) 40 mg IV BIDAC [facility] Last Admin: 11/29/20 16:30 Dose: 40 mg Documented by: Admin: 11/29/20 07:30 Dose: 40 mg Documented by: Admin: 11/28/20 17:55 Dose: 40 mg Documented by: ASMMu Admin: 11/28/20 10:38 Dose: 40 mg Documented by: Admin: 11/27/20 17:14 Dose: 40 mg Documented by: Admin: 11/27/20 07:31 Dose: 40 mg Documented by: Admin: 11/26/20 17:08 Dose: 40 mg Documented by: SIA Vibegron [Gemtesa] (75 Mg Tablet) 1 dose PO QDAY [facility] Last Admin: 11/29/20 10:00 Dose: 1 dose Documented by: HARVEY Shift Summary 11/29/20 03:09 Shift Summary by Ten Bond Pt A/Kayla4. Pleasant and cooperative with cares. Transitioning to GI soft diet @0800. IV RAC running NS @50ml/hr. Hx of rectal/colon cancer w/ METS to liver, chemotherapy. Has ostomy to LLQ r/t cancer. No c/o abdominal pain. Abdominal x- ray shows possible partial bowel obstruction; X-ray to be repeated @0500. Has chronic L hip pain, received 500mg PRN Tylenol x2 this shift last @2350. [place] w/ SBA and quad [place] [facility] [place] frequency. Pt takes OAB medication (Gemtesa) @ home, but has not taken since Thursday which may be the cause for urinary frequency; expected to bring Gemtesa in later today. D/C TBD, ex pected to D/C home w/ when ready. Initialized on 11/29/20 03:09 - END OF NOTE
== END 2020-11-29 18:34 | disposition home or self-care (01) | DRG 390 ==
LOC: ED 07:34 → MEDSUR 07:34 → OBSVTOIN 11:00 → MEDSUR 11:00
PROVIDERS: ADMIT Family Medicine Adult Medicine; ATTEND Family Medicine Adult Medicine